=== PATIENT | female | born 1980 | race Two or more races ===

== ENCOUNTER → 2024-03-18 10:47 | Outpatient (REF) | payer BC, SELFPAY | LOC: WDC 10:47 | PROVIDERS: ATTENDING PHYSICIAN Nurse Practitioner Adult Health | DX: Z12.31 Encounter for screening mammogram for malignant neoplasm of breast (principal) | CPT/HCPCS: 77063; 77067 ==

== ENCOUNTER 2024-09-20 06:30 | Day surgery (SDC) | payer BC, SELFPAY | END 2024-09-20 13:05 | disposition home or self-care (01) | LOC: GI 06:30 | PROVIDERS: ATTENDING PHYSICIAN Internal Medicine Gastroenterology | DX: K20.90 Esophagitis, unspecified without bleeding (principal); K22.2 Esophageal obstruction; K44.9 Diaphragmatic hernia without obstruction or gangrene; Z13.810 Encounter for screening for upper gastrointestinal disorder | CPT/HCPCS: 43239; 88305 ==